=== PATIENT | female | born 1995 | race Caucasian/White ===

== ENCOUNTER 2018-09-14 01:43 | Emergency (ER) | payer MEDICAID ==
[~2018-09-14] VITALS: Ht 154.9 cm; Wt 67.0 kg
[2018-09-14] MEDS ORDERED: FAMOTIDINE 20MG TABLET PO ONE (06:15)
[2018-09-14] MEDS ORDERED: DIPHENHYDRAMINE 50MG CAPSULE PO ONE (06:15)
[2018-09-14] MEDS ORDERED: PREDNISONE 20MG TABLET PO ONE (06:15)
[2018-09-14 08:14] VITALS: BP 121/61
== END 2018-09-14 08:31 | disposition home or self-care (01) ==
LOC: ER 01:43
DX: L50.0 Allergic urticaria (principal); Z91.018 Allergy to other foods; Z98.890 Other specified postprocedural states
CPT/HCPCS: 81025; 99284; J7512; Q0163; Z7610

== ENCOUNTER 2024-09-26 19:53 | Emergency (ER) | payer MEDICAID ==
[~2024-09-26] VITALS: Ht 154.9 cm; Wt 68.9 kg
[2024-09-26 20:27] VITALS: O2SAT 99
[2024-09-26] MEDS: KETOROLAC 15MG/ML VIAL IM ONE (21:39)
[2024-09-26] MEDS: METOCLOPRAMIDE HCL 10MG TABLET PO ONE (21:39)
[2024-09-26] MEDS: ACETAMINOPHEN 325MG TABLET PO ONE (21:40)
[2024-09-26] MEDS ORDERED: IBUP-2029 MT (23:37)
[2024-09-27 00:30] VITALS: BP 95/54; PULSE 70; RESP 16; TEMP 36.9; O2SAT 95
== END 2024-09-27 00:32 | disposition home or self-care (01) ==
LOC: ER 19:53
DX: R51.9 Headache, unspecified (principal); M54.50 Low back pain, unspecified
CPT/HCPCS: 99283; 81025; 96372; J1885; J8597